=== PATIENT | male | born 1990 | race Two or more races ===

== ENCOUNTER 2023-02-14 14:00 | Emergency (ER) | payer OTHER, SELFPAY ==
[2023-02-14 14:10] VITALS: BP 119/84; PULSE 74; RESP 18; TEMP 36.7; O2SAT 97; BMI 26.4
--- NOTE | 2023-02-14 14:40 | XR_ITS ---
The [address] [address] Patient Name: EDGAR LADD MRN: [id number] date: 1990 Sex: M Assigned Patient Location: ER Current Patient Location: ER Accession/Order Number: [id number] Exam Date: 02/14/2023 14:35 Report Date: 02/14/2023 14:53 At the request of: FAUSTO CARVALHO Procedure: XR wrist RT min 3V PROCEDURE: XR wrist RT min 3V HISTORY: dog bite COMPARISON: None. FINDINGS: BONES:No fracture, acute abnormality, or significant arthropathy. SOFT TISSUES:Prominent soft tissue swelling and large amount of subcutaneous air anterior and posterior to the wrist. No radiopaque foreign body. EFFUSION:None visible. OTHER: Negative. XR/XR wrist RT min 3V IMPRESSION: 1. Soft tissue swelling surrounding the wrist with large amount of subcutaneous air, and several visible puncture wounds. No radiopaque foreign body. 2. No bone involvement. Electronically authenticated by: HARSHAL SALCIDO Date: 02/14/2023 14:53
[2023-02-14] MEDS: BACITRACIN 0.9 GM PACKET 1 PACKET TOPICAL (14:43)
[2023-02-14] MEDS: ADACEL DIPH,PERTUSS(ACELL),TET VAC/PF 0.5 ML ADULT SYRINGE IM (14:43)
--- NOTE | 2023-02-14 15:16 | ED.ANIMALBI1 ---
HPI - Animal Bite General Chief Complaint: Animal Bite Stated Complaint: BIT BY DOG ON R ARM Time Seen by Provider: 02/14/23 14:20 Source: patient Mode of arrival: walk-in Limitations: no limitations History of Present Illness HPI narrative: patient is a 32-year-old male who presents to the emergency department for the evaluation of a dog bite to the right wrist. Patient states approximately 3-4 hours ago he was bit by a neighborhood dog that he tried to pet. Vaccination status of the dog is unknown. Unknown last tetanus for the patient. He has had swelling, puncture wounds to the right wrist. He is right-hand dominant. No medications taken prior to arrival. No other associated injuries. Related Data Previous Rx's Medication Instructions Recorded amoxicillin 875 mg-potassium 1 tab PO Q12H #20 tabs 02/14/23 clavulanate 125 mg tablet hydrocodone 5 mg-acetaminophen 325 1 tab PO Q6H PRN pain #12 tabs 02/14/23 mg tablet naproxen sodium 550 mg tablet 550 mg PO BID PRN pain #10 tabs 02/14/23 Allergies Allergy/AdvReac Type Severity Reaction Status Date / Time No Known Drug Allergies Allergy Verified 02/14/23 14:15 Review of Systems ROS Constitutional Denies: fever or chills Ears, nose, mouth, and throat Denies: throat pain Respiratory Denies: shortness of breath Gastrointestinal Denies: nausea or vomiting Musculoskeletal Reports: extremity pain; Denies: back pain or neck pain Integumentary/Breast Denies: rash Hematologic/Lymphatic Denies: easy bruising Exam Narrative Exam Narrative: Gen.: Awake, alert, in no distress Head: Normocephalic, atraumatic ENT: Moist mucous membranes Respiratory: No respiratory distress Extremities: limited flexion and extension at the right wrist due to swelling and pain. 1.5 cm jagged puncture wound/laceration noted to the volar right wrist with minimal subcutaneous tissue exposure, the laceration is gapped approximately 2 mm. There is no tendon, muscle or bony visualization under the laceration. 2+ right radial pulse. Three small puncture wounds noted to the dorsum of the right wrist with no large gap or subcutaneous tissue exposure. Normal flexion and extension of the fingers of the right hand with normal sensation to the fingertips Psych: Normal mood and affect Neuro: No focal neuro deficit Skin: Warm, dry Constitutional Vital Signs, click to edit/add: Last Vital Signs Temp 98.1 F 02/14/23 14:10 Pulse 74 02/14/23 14:10 Resp 18 02/14/23 15:34 BP 143/90 H 02/14/23 15:34 Pulse Ox 99 02/14/23 15:34 O2 Del Method Room Air 02/14/23 15:34 Course Vital Signs Vital signs: Vital Signs Temperature 98.1 F 02/14/23 14:10 Pulse Rate 74 02/14/23 14:10 Respiratory Rate 18 02/14/23 14:10 Blood Pressure 119/84 02/14/23 14:10 Pulse Oximetry 97 02/14/23 14:10 Oxygen Delivery Method Room Air 02/14/23 14:10 Temperature 98.1 F 02/14/23 14:10 Pulse Rate 74 02/14/23 14:10 Respiratory Rate 18 02/14/23 15:34 Blood Pressure 143/90 H 02/14/23 15:34 Pulse Oximetry 99 02/14/23 15:34 Oxygen Delivery Method Room Air 02/14/23 15:34 MDM - Animal Bite MDM Narrative Medical decision making narrative: x-ray show no evidence of acute bony process, this is reviewed by the radiologist. Tetanus is updated, patient was treated with pain medication in the Emergency Room. Laceration to the volar wrist was approximated with sutures. Please see procedure note for details. Patient started on Augmentin, pain medication, NSAIDs. Topical antibiotic ointment, RICE therapy encouraged for home. Return to the Emergency Room if symptoms change or worsen. Sutures removed in 8-10 days with PCP or urgent care. Laceration repair: Done under sterile conditions. The use of Shur-Clens prep the area. Local injection with lidocaine 1% was used, approximately 5 cc. The wound was irrigated copiously with normal saline. The wound was explored there was no evidence of foreign material. The laceration was approximated with 3-0 nylon. 2 simple interrupted sutures were placed. Patient tolerated the procedure well. The patient was neurovascularly intact post. the patient had bacitracin applied to the laceration and a dry sterile dressing was placed with Ajay wrap. The patient will need to follow-up in the next 8-10 days for removal I, Dr Belle, have reviewed the above progress note and course of action in the ER; agree with the above. I have personally seen and evaluated this patient, gone over history and physical, and discussed disposition and treatment plan with the patient. Tetanus was updated, the risk and benefits of performing rabies immunizations and injections were discussed as well. It is currently uncertain who his dog this was. Education was done with patient on what is Needed and medication given with rabies immunoglobin, Vaccination injections, and return visits that are needed for continued rabies vaccinations. Patient currently is decllining, understands that he can change his mind in the next few days and have rabies vaccinations if needed. Shared decision-making was done with the patient, Azul WORKMAN, and myself dr BELLE. Patient was thankful on recommendations and education on potential rabies infection. Patient was told in the setting of caution and go through the series of shots for rabies, patient is currently declining at this time. Medical Records Attestation: I reviewed the patient's medical records. Imaging Data XR wrist: Attestation: I have reviewed the pertinent imaging results. Radiologist's impression: Procedure: XR wrist RT min 3V PROCEDURE: XR wrist RT min 3V HISTORY: dog bite COMPARISON: None. FINDINGS: BONES:No fracture, acute abnormality, or significant arthropathy. SOFT TISSUES:Prominent soft tissue swelling and large amount of subcutaneous air anterior and posterior to the wrist. No radiopaque foreign body. EFFUSION:None visible. OTHER: Negative. IMPRESSION: 1. Soft tissue swelling surrounding the wrist with large amount of subcutaneous air, and several visible puncture wounds. No radiopaque foreign body. 2. No bone involvement. Electronically authenticated by: HARSHAL SALCIDO Date: 02/14/2023 14:53 Discharge Plan Discharge Chief Complaint: Animal Bite Clinical Impression: Puncture wound, Dog bite, Acute pain of right wrist Patient Disposition: Home, Self-Care Time of Disposition Decision: 15:17 Condition: Good Prescriptions / Home Meds: New hydrocodone-acetaminophen 5-325 mg tablet 1 tab PO Q6H PRN (Reason: pain) Qty: 12 0RF Rx Instructions: DX: M25.531 amoxicillin-pot clavulanate 875-125 mg tablet 1 tab PO Q12H Qty: 20 0RF naproxen sodium 550 mg tablet 550 mg PO BID PRN (Reason: pain) Qty: 10 0RF Instructions: Animal Bite (ED), Care For Your Stitches (ED), Wrist Injury (ED), Puncture Wound (ED) Additional Instructions: Sutures removed in 8-10 days with primary care or urgent care. Stand Alone Forms: Portal Instructions Referrals: Physician,Non-Staff, MD [Primary Care Provider] - 1 week Discharge Date/Time: 02/14/23 15:38
[2023-02-14 15:34] VITALS: BP 143/90; RESP 18; O2SAT 99
== END 2023-02-14 15:38 | disposition home or self-care (01) ==
PROVIDERS: Emergency Provider Emergency Medicine
DX: S61.551A Open bite of right wrist, initial encounter (principal); W54.0XXA Bitten by dog, initial encounter; M25.531 Pain in right wrist; Z23 Encounter for immunization
CPT/HCPCS: 12001; 73110; 90471; 90715; 99284

== ENCOUNTER 2025-02-21 18:27 | Emergency (ER) | payer OTHER, SELFPAY ==
--- OUTSIDE RECORDS SUMMARY | 2017-07-12 07:33 | XMS_ITS | Continuity of Care Document ---
Author Organization [facility] ([place], [place]) Address [address] [place] [address] Phone Care Team Providers Care Picture Booker Name Role Phone Howard Roa Unavailable Unavailable Allergies, Adverse Reactions, Alerts Substance Reaction Status Criticality No Known allergies Procedures Procedure Date PREV VISIT, NEW, AGE 18-39 [facility] SPECIMEN HANDLING (GC/CHLAMYDIA) Dec HIV-1 Condoms Advance Directives Directive Yes / No Effective Date File Name No Information Encounters Encounter Description Practice Location Reason(s) For Visit Diagnoses Date Provider Providers Copied on Encounter [facility] ([place], [place]), [address], [place], [id number], tel:[phone] [facility] ([place] [place]) No Information Betty Wong. [address], [place], [id number], [place]. tel:[phone] PREV VISIT, NEW, AGE 18-39 [facility] ([place], [place]), [address], [place], [id number], tel:[phone] [facility] ([place], [place]) STI male (chief complaint) Screening examination for venereal disease Gauri Timmons. [address], [place], [id number], [place]. tel:[phone] Family History Family Member Type Diagnosis Age At Onset No Information Payers Payer name Insurance type Covered libertarian ID Authoriza tion(s) No Information Social History [...]
[2025-02-21 18:33] VITALS: BP 126/95; PULSE 92; TEMP 37.3; O2SAT 98; BMI 26.4
--- OUTSIDE RECORDS SUMMARY | 2025-02-21 18:34 | XMS_ITS | Patient Health Record ---
Author Organization [facility] Address [address], [place] [id number] Support Name Relationship Address Phone Khurram Hawk Guarantor Unknown [phone] Reason For Referral No Information Plan Of Treatment No Information Insurance Providers Payer Name Payer Address Payer Phone Subscriber Number Group Number Insured Name Patient Relationship to Insured Coverage Start Date Coverage End Date [facility] [address] [place], [place] [id number] Khurram Hawk Self - patient is the insured
--- NOTE | 2025-02-21 18:50 | ED_ITS ---
HPI HPI - General Adult General Chief complaint: Animal Bite Stated complaint: DOG BITE Time Seen by Provider: 02/21/25 18:39 Source: patient Mode of arrival: walk-in Limitations: no limitations History of Present Illness HPI narrative: Patient states was bitten on hands by unknown dog . Patient was helping clean up his friend's yard. States dog with collar ran in yard. Followed by other people after his hands were bitten by dog and other people left. Patient has unknown last tetanus imm. pt has hand pain. About rabies inquires about rabies vaccines. We discussed hand pain antibiotics update immunizations. Patient denies any additional injuries. He denies any blood thinner use. 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) Location: Reports upper extremity (Hand/ bilateral) Radiation: Reports non-radiation Severity: moderate Relieving factors: Reports none Exacerbating factors: Reports movement Treatments prior to arrival: Reports none Related Data Previous Rx's ?Medication ?Instructions ?Recorded amoxicillin 875 mg-potassium 1 tab PO Q12H #20 tabs clavulanate 125 mg tablet Allergies Allergy/AdvReac Type Severity Reaction Status Date / Time No Known Drug Allergies Allergy Verified 02/21/25 18:36 Opioid HPI Opioid Management Most Recent Opioid Data: Last Pain Scale 10 Today, 18:33 Review of Systems ROS Status of ROS 10 or more systems reviewed and unremark able except as noted in history and below Constitutional Denies: fever or chills Cardiovascular Denies: chest pain Respiratory Denies: cough Gastrointestinal Denies: abdominal pain Musculoskeletal Reports: extremity pain and extremity swelling; Denies: back pain or muscle weakness Integumentary/Breast Reports: other (Lacerations and puncture wounds to hands) Neurological Denies: headache Psychiatric Denies: anxiety Hematologic/Lymphatic Denies: easy bruising Exam Constitutional Vital Signs, click to edit/add: Last Vital Signs Temp 99.1 F 02/21/25 18:33 Pulse 92 H 02/21/25 18:33 Resp 20 02/21/25 18:33 BP 126/95 H 02/21/25 18:33 Pulse Ox 98 02/21/25 18:33 O2 Del Method Room Air 02/21/25 18:33 Documenting provider has reviewed patient's vital signs: yes Common normals: no apparent distress and oriented x3 HENMT Common normals: normocephalic Head and scalp: normal to inspection Face and sinus: normal facial exam Eye Common normals: PERRL and EOMs intact bilaterally Neck & C-Spine Common normals: full ROM and supple Respiratory Common normals: normal respiratory effort and clear to auscultation bilaterally Effort & inspection: able to speak in complete sentences Cardio Common normals: regular rate, regular rhythm, S1 normal heart sound and S2 normal heart sound GI Common normals: Normal to inspection, nondistended, normoactive bowel sounds present, soft to palpation and non-tender Extremity Common normals: limited ROM Right upper extremity: hand and digits (multiple punctures/edema/tender) Left upper extremity: wrist and hand and digits (laceration. multiple punctures / + tender and edema) Neuro Common normals: no focal motor deficits and no sensory deficits noted Psych Common normals: mental status grossly normal, thought process normal and cooperative Appearance: grossly normal and well kempt Course Vital Signs Vital signs: Vital Signs Temperature 99.1 F 02/21/25 18:33 Pulse Rate 92 H 02/21/25 18:33 Respiratory Rate 20 02/21/25 18:33 Blood Pressure 126/95 H 02/21/25 18:33 Pulse Oximetry 98 02/21/25 18:33 Oxygen Delivery Method Room Air 02/21/25 18:33 Temperature 99.1 F 02/21/25 18:33 Pulse Rate 92 H 02/21/25 18:33 Respiratory Rate 20 02/21/25 18:33 Blood Pressure 126/95 H 02/21/25 18:33 Pulse Oximetry 98 02/21/25 18:33 Oxygen Delivery Method Room Air 02/21/25 18:33 Medical Decision Making [facility] Narrative Medical decision making narrative: Discussed plan of care with patient including antibiotics x-rays of both hands. Will add Augmentin 875 mg DTaP patient inquires as to rabies vaccine we discussed rabies vaccine patient still requests rabies vaccine as well as immunoglobulin at this time will order both. Laceration to left hand with loose closure. Consent again discussed with patient regarding rabies immunoglobulin vaccine patient persists in request for vaccine and immunoglobulin. We again discussed risks and benefits. PML RIG instilled in the lacerations approaches bilateral hands. Patient tolerated procedure. Will refer to primary care re ferral sheet given refer to orthopedics suture removal in 7 days. Augmentin 875 twice daily x 10 days to local pharmacy patient to reapply dry sterile dressing twice daily. Patient return to ER if any symptoms worsen or new symptoms develop. Patient ordered rabies vaccine 1 mL IM on days 3 7 and 14. He advises they will call patient from central scheduling to schedule these repeat vaccines patient agreeable plan of care. See Patient procedure note. Differential Diagnosis Differential Diagnosis: , Laceration, puncture wound dog bites Discharge Plan Discharge Chief Complaint: Animal Bite Clinical Impression: Puncture wound, Laceration Dog bite Qualifiers: Encounter type: initial encounter Qualified Code(s): W54.0XXA - Bitten by dog, initial encounter Patient Disposition: Home, Self-Care Time of Disposition Decision: 21:03 Mode of Transportation: Private Vehicle Prescriptions / Home Meds: New amoxicillin-pot clavulanate 875-125 mg tablet 1 tab PO Q12H Qty: 20 0RF Print Language: Czech Instructions: Animal Bite (ED), Rabies (ED) Additional Instructions: Wash wounds with gentle soap and water reapply nonstick dressings twice daily. Suture removal in 7 days. Follow-up with primary care and orthopedics. Return for additional rabies vaccines they will contact you tomorrow to schedule these. Referrals: ANN MARTINEZ [Physician, Orthopedics] - As soon as possible Physician,Non-Staff, [Primary Care Provider] - As soon as possible Referral Note: See referral sheet provided Procedures ED Laceration Laceration Laceration 1: Site: hand Side (if applicable): right Size (cm): 4 Description: linear Depth: simple, single layer Anesthetic used: lidocaine 1% Anesthesia technique: local infiltration Amount (ml): 6 Pre-repair: wound explored, irrigated extensively and deep structures intact Skin layer closed with: other (Prolene) Size (cm): 3-0 Number of sutures: 3 Technique: simple, interrupted Additional comments: Patient closed suture with 2 to 3 mm gap secondary to dog bite. 3 sutures placed sterile technique utilized patient was reprepped with Betadine prior to procedure after being cleaned with chlorhexidine and copious amounts of fluid. Patient tolerated procedure.
[2025-02-21] MEDS: RABIES VACCINE/PF 1 ML VIAL IM (20:46)
[2025-02-21] MEDS: DIPHTH,PERTUSS(ACELL),TET VAC 0.5 ML SYRINGE IM (20:47)
[2025-02-21] MEDS: AMOXICILLIN/POT CLAV 875-125 MG TABLET 1 TAB PO (20:49)
[2025-02-21] MEDS: LIDOCAINE HCL 1% 100 MG/10 ML MDV INJ (20:49)
[2025-02-21] MEDS: RABIES IMMUNE GLOBULIN/PF 300 UNIT/2 ML VIAL 1397.06 UNIT INJ (20:50)
== END 2025-02-21 21:50 | disposition home or self-care (01) ==
PROVIDERS: Emergency Provider Student in an Organized Health Care Education/Training Program
DX: S61.451A Open bite of right hand, initial encounter (principal); S61.452A Open bite of left hand, initial encounter; W54.0XXA Bitten by dog, initial encounter; Z23 Encounter for immunization
CPT/HCPCS: 73130; 90377; 90471; 90472; 90675; 99284

== ENCOUNTER 2025-03-05 07:57 | Emergency (ER) | payer SELFPAY ==
--- OUTSIDE RECORDS SUMMARY | 2017-07-12 07:33 | XMS_ITS | Continuity of Care Document ---
Author Organization [facility] Address [address] [place] [address] Phone Care Team Providers Care Bacon Slicer Name Role Phone Howard Roa Unavailable Unavailable Allergies, Adverse Reactions, Alerts Substance Reaction Status Criticality No Known allergies Procedures Procedure Date PREV VISIT, NEW, AGE 18-39 [facility] SPECIMEN HANDLING (GC/CHLAMYDIA) Dec HIV-1 Condoms Advance Directives Directive Yes / No Effective Date File Name No Information Encounters Encounter Description Practice Location Reason(s) For Visit Diagnoses Date Provider Providers Copied on Encounter [facility], [address], [place], [id number], tel:[phone] [facility] No Information Betty Wong. [address], [place], [id number], [place]. tel:[phone] PREV VISIT, NEW, AGE 18-39 [facility], [address], [place], [id number], tel:[phone] [facility] STI male (chief complaint) Screening examination for venereal disease Gauri Timmons. [address], [place], [id number], [place]. tel:[phone] Family History Family Member Type Diagnosis Age At Onset No Information Payers Payer name Insurance type Covered constitution party ID Authoriza tion(s) No Information Social History Type Description Quantity Date Captured Comments Sex Male Smoking Status No Information Sexual Orientation Straight or heterosexual Chief Complaint And Reason For Visit No Information Reason For Referral Reason For Referral No Information Plan Of Treatment Date Type Action Status Goal Tobacco cessation counseling completed History Of Present Illness Encounter Date Complaint History Of Prese nt Illness No Information Functional Status Date Functional Assessmen t No Information Instructions Date Instruction Additional Camir michael Avoid sexual activit y while you await your test results. Related to Screening examination for venereal disease No treatment indicat ed today. Call for test results. Related to Screening examination for venereal disease Assessments Type Assessment Date No Information Patient Care Teams Name Effective Dates (start - stop) Status Members No Information
[2025-03-05 08:01] VITALS: BP 126/93; PULSE 85; TEMP 36.6; O2SAT 97; BMI 26.4
--- OUTSIDE RECORDS SUMMARY | 2025-03-05 08:08 | XMS_ITS | Patient Health Record ---
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 Name Role Phone valentineFidelia Esvin Primary Care Provider [phone] Reason For Referral No Information Medications Medication SIG (Take, Route, Fr equency, Duration) Notes Start Date End Date Status Omeprazole 40 MG 1 capsule Orally Onc e a day; Duration: 30 day(s) 12/19/2016 Active Problems Problem Type SNOMED Code ICD Code Onset Dates Problem Status W/U Status Risk Notes Problem Residual foreign body in soft tissue (0673250) Residual foreign body in soft tissue (729.6) Active confirmed Problem Constipation (K59.00) Active confirmed Plan Of Treatment No Information Insurance Providers Payer Name Payer Address Payer Phone Subscriber Number Group Number Insured Name Patient Relationship to Insured Coverage Start Date Coverage End Date [employer] PA[employer] EDGAR LADD Self - patient is the insured Medical (General) History Surgical History Surgery Date(Month/Year) Abdominal surgery 2015 Hospitalization History Reason Date(Month/Year) Abdominal surgery 2015
--- OUTSIDE RECORDS SUMMARY | 2025-03-05 08:09 | XMS_ITS | Patient Health Record ---
Author Organization [facility] Address [address], [place] [id number] Support Name Relationship Address Phone Khurram Hawk Guarantor Unknown [phone] Reason For Referral No Information Plan Of Treatment No Information Insurance Providers Payer Name Payer Address Payer Phone Subscriber Number Group Number Insured Name Patient Relationship to Insured Coverage Start Date Coverage End Date [facility] [address] [place], [place] [id number] Khurram Hawk Self - patient is the insured
--- NOTE | 2025-03-05 08:21 | ED_ITS ---
HPI HPI - General Adult General Chief complaint: Recheck/Abnormal Lab/Rx Stated complaint: STICHES REMOVAL Time Seen by Provider: 03/05/25 08:04 Source: patient Mode of arrival: walk-in Limitations: no limitations History of Present Illness HPI narrative: 34 year old male who is coming today for suture removal, he sustained this laceration after dog bite almost to 12 days ago No other complaints Related Data Home Medications ?Medication ?Instructions ?Recorded ?Confirmed No Known Home Medications 03/05/25 08/2 08/09 Allergies Allergy/AdvReac Type Severity Reaction Status Date / Time No Known Drug Allergies Allergy Verified 03/05/25 08:07 Opioid HPI Opioid Management Most Recent Opioid Data: Last Pain Scale 6 Today, 08:01 Review of Systems ROS Status of ROS 10 or more systems reviewed and unremark able except as noted in history and below [facility] Social History (Updated 03/05/25 @ 08:10 by Edwina Williamson RN) Within the past year, how often did you have a drink containing alcohol: never Score interpretation: A score less than 4 is consistent with normal alcohol consumption. Smoking status: Never smoker Non-prescribed substance use: denies use Little interest or pleasure in doing things: not at all Feeling down, depressed, or hopeless: not at all Exam Narrative Exam Narrative: Nurses notes and vital signs reviewed and patient is not hypoxic. General: Well-appearing and in no apparent distress. Skin: Warm, dry, no pallor noted. Right upper extremity the patient had multiple lacerations that are healing there is only 3 stitches on the dorsum of the right hand that are clean and healing well Constitutional Vital Signs, click to edit/add: Last Vital Signs Temp 97.8 F 03/05/25 08:01 Pulse 85 03/05/25 08:01 Resp 15 03/05/25 08:01 BP 126/93 H 03/05/25 08:01 Pulse Ox 97 03/05/25 08:01 O2 Del Method Room Air 03/05/25 08:01 Course Vital Signs Vital signs: Vital Signs Temperature 97.8 F 03/05/25 08:01 Pulse Rate 85 03/05/25 08:01 Respiratory Rate 15 03/05/25 08:01 Blood Pressure 126/93 H 03/05/25 08:01 Pulse Oximetry 97 03/05/25 08:01 Oxygen Delivery Method Room Air 03/05/25 08:01 Temperature 97.8 F 03/05/25 08:01 Pulse Rate 85 03/05/25 08:01 Respiratory Rate 15 03/05/25 08:01 Blood Pressure 126/93 H 03/05/25 08:01 Pulse Oximetry 97 03/05/25 08:01 Oxygen Delivery Method Room Air 03/05/25 08:01 Medical Decision Making MDM Narrative Medical decision making narrative: The patient presentation is just for suture removal and the right now 3 stitches were removed and the patient wounds are healing well He did mention that he did not continue taking his rabies injection but the patient at that time was a low risk for rabies and at this moment the patient just follow-up with his primary care The patient is to follow up with primary care physician in next 2-3 days or to return to the emergency department should any of the signs or symptoms worsen or new symptoms develop. The patient agrees with the following Diagnosis and Treatment plan and the patient will be discharged home. Discharge Plan Discharge Chief Complaint: Recheck/Abnormal Lab/Rx Clinical Impression: Visit for suture removal Patient Disposition: Home, Self-Care Time of Disposition Decision: 08:16 Condition: Good Prescriptions / Home Meds: No Action No Known Home Medications Print Language: [place] Islander Instructions: Stitches Removal (ED) Referrals: Physician,Non-Staff, MD [Primary Care Provider] - 1 week
[2025-03-05 08:22] VITALS: BP 145/98; PULSE 77; O2SAT 96
== END 2025-03-05 08:24 | disposition home or self-care (01) ==
PROVIDERS: Emergency Provider Emergency Medicine
DX: S61.411D Laceration without foreign body of right hand, subsequent encounter (principal); W54.0XXD Bitten by dog, subsequent encounter
CPT/HCPCS: 99281

== ENCOUNTER 2025-06-24 20:55 | Emergency (ER) | payer SELFPAY ==
[2025-06-24] VITALS (26 sets, daily range): BP systolic 106–151; BP diastolic 72–107; PULSE 69–115; TEMP 36.8; O2SAT 95–99
--- NOTE | 2025-06-24 21:16 | CT_ITS ---
The [place] [id number] Patient Name: EDGAR LADD MRN: [id number] date: 1990 Sex: M Assigned Patient Location: ED.MAIN Current Patient Location: ED.MAIN Accession/Order Number: [id number] Exam Date: 06/24/2025 21:30 Report Date: 06/24/2025 22:36 At the request of: ANISH ALVAREZ DO Procedure: CT forearm RT w con CT RIGHT FOREARM WITH CONTRAST: CLINICAL HISTORY: multiple dog bite, concern for tendon/nerve injury COMPARISON: None TECHNIQUE: This CT exam was performed using one or more following dose reduction techniques: Automated exposure control, adjustment of the mA and/or kV according to patient size, or use of iterative reconstruction technique. FINDINGS: Evaluation degraded due to quantum mottle related patient positioning. Portions of the soft tissues and the osseous structures are excluded from [id number]. Evidence of subcutaneous gas. No fracture-dislocation. No definite radiopaque foreign body within the wklsx-ss-frnt. CT/CT forearm RT w con IMPRESSION: Soft tissue injury. No radiopaque foreign body or fracture identified. Correlate with clinical exam findings. Impression dictated by: Wilberto Ybarra M.D. 06/24/2025 10:36 PM Dictation Location: [place] [address] Electronically authenticated by: [id number] Y Date: 06/24/2025 22:36
--- NOTE | 2025-06-24 21:18 | CT_ITS ---
The [address] [address] Patient Name: EDGAR LADD MRN: [id number] date: 1990 Sex: M Assigned Patient Location: ED.MAIN Current Patient Location: ED.MAIN Accession/Order Number: [id number] Exam Date: 06/24/2025 21:30 Report Date: 06/24/2025 22:29 At the request of: ANISH ALVAREZ DO Procedure: CT head/brain wo con CT BRAIN WITHOUT CONTRAST: CLINICAL HISTORY: injury COMPARISON: None TECHNIQUE: Contiguous axial unenhanced images were obtained through the brain. This CT exam was performed using one or more following dose reduction techniques: Automated exposure control, adjustment of the mA and/or kV according to patient size, or use of iterative reconstruction technique. FINDINGS: There is no evidence of midline shift, intra or extra-axial fluid collection, hemorrhage or CT evidence of of acute large vascular distribution stroke. Visualized intraorbital contents appear unremarkable. Visualized paranasal sinuses are clear. The surrounding soft tissues are normal. CT/CT head/brain wo con IMPRESSION: NO ACUTE INTRACRANIAL ABNORMALITY. Impression dictated by: Wilberto Ybarra M.D. 06/24/2025 10:29 PM Dictation Location: [place] [address] Electronically authenticated by: [id number] Y Date: 06/24/2025 22:29
[2025-06-24] MEDS: HYDROMORPHONE HCL 0.5 MG/0.5 ML SYRINGE IV (21:19)
[2025-06-24] MEDS: 0.9 % SODIUM CHLORIDE 1,000 ML 1000 ML IV ×2 (21:19→22:06)
[2025-06-24] MEDS: MIDAZOLAM HCL 2 MG/2 ML VIAL IV (21:19)
[2025-06-24 21:22] LABS: Hematocrit 42.9 % (42.0-54.0); Hemoglobin 14.2 g/dL (14.0-18.0); Immature Granulocytes Abs Auto 0.03 10^3/uL (0.00-0.03); Immature Granulocytes Pct Auto 0.3 % (0.0-0.5); Lymphocytes Absolute Auto 2.3 10^3/uL (1.2-3.8); Mean Corpuscular HGB Conc 33.1 g/dL (29.9-35.2); Mean Corpuscular Hemoglobin 29.8 pg (25.9-34.0); Mean Corpuscular Volume 90.1 fL (80.0-94.0); Platelet Count 338 10^3/uL (150-450); Red Blood Count 4.76 10^6/uL (4.70-6.10); White Blood Count 10.5 10^3/uL (4.0-11.0)
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
[2025-06-24 21:33] LABS: Alanine Aminotransferase 18 U/L (16-63); Albumin Globulin Ratio 1.1; Albumin Level 3.9 g/dL (3.4-5.0); Alkaline Phosphatase 107 U/L (46-116); Anion Gap 26.7; Aspartate Amino Transferase 23 U/L (15-37); Blood Urea Nitrogen 17.0 mg/dL (7.0-18.0); Calcium 9.0 mg/dL (8.5-10.1); Carbon Dioxide 14.6 mmol/L (21.0-32.0); Chloride 100 mmol/L (98-107); Estimated GFR (African America >60 (>=60 mL/min/1.73m^2); Estimated GFR (Non-African Ame 50 (>=60 mL/min/1.73m^2); Globulin 3.5 g/dL; Glucose 77 mg/dL (74-106); INR 0.99; Partial Thromboplastin Time 26.7 sec (22.3-36.2); Potassium 3.3 mmol/L (3.5-5.1); Prothrombin Time 10.4 sec (9.0-11.6); Salicylate <2.8 mg/dL (<=19.9); Sodium 138 mmol/L (136-145); Total Protein 7.4 g/dL (6.4-8.2)
[2025-06-24] MEDS: HALOPERIDOL LACTATE 5 MG/ML VIAL 2.5 MG IV (21:34)
[2025-06-24] MEDS: DIPHENHYDRAMINE HCL 50 MG/ML VIAL IVP (21:34)
[2025-06-24 21:36] LABS: Acetaminophen <2.0 ug/mL (10.0-30.0)
[2025-06-24] MEDS: AMPICILLIN SODIUM/SULBACTAM NA 3 GM in 0.9 % SODIUM CHLORIDE 100 ML IV (22:05)
[2025-06-24] MEDS: LIDOCAINE HCL 1%-EPINEPHRINE 1:100,000 20 ML MDV 10 ML INJ (22:59)
[2025-06-24] MEDS: LORAZEPAM 2 MG/ML VIAL IV (22:59)
--- NOTE | 2025-06-24 23:15 | ECG_ITS ---
The 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 Repeat ECG is requested 9110 normal ECG No previous ECG available for comparison Electronically Signed On 06-25-2025 15:52:24 EST by TY HERRON
--- NOTE | 2025-06-24 23:20 | PC.NURSE ---
Pt dropped off at front of registration, began registering then sat on the floor and then laid on the floor. pt has multiple laceration and puncture wounds to right forearm. pt able to answer few questions, states it was a dog bite and that he got too loud and the dog attacked him. refuses to say who the dog belonged to or where it had come from.
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
[2025-06-24 23:48] LABS: Cannabinoid Screen Urine POSITIVE (NEGATIVE); Methamphetamines Screen Urine POSITIVE (NEGATIVE); Tricyclic Antidepressant Urine NEGATIVE (NEGATIVE)
[2025-06-25] VITALS (23 sets, daily range): BP systolic 117–137; BP diastolic 70–98; PULSE 67–80; O2SAT 96–99
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
--- NOTE | 2025-06-25 09:45 | ED.GENADUL1 ---
HPI HPI - General Adult General Chief complaint: Animal Bite Stated complaint: other Time Seen by Provider: 06/24/25 21:14 Source: patient Limitations: altered mental status Limitations comment: intoxicated History of Present Illness HPI narrative: 34-year-old male presented to the emergency department and was initially seen by Dr. Gaona. Please see his full history and physical exam. Related Data Previous Rx's ?Medication ?Instructions ?Recorded amoxicillin 875 mg-potassium 1 tab PO BID 10 days #20 tabs 06/25/25 clavulanate 125 mg tablet Allergies Allergy/AdvReac Type Severity Reaction Status Date / Time No Known Drug Allergies Allergy Verified 06/24/25 21:18 Opioid HPI Opioid Management Most Recent Opioid Data: Last Pain Scale 6 03/05/25, 08:01 Ur Phencyclidine Scrn, (NEGATIVE) Negative 06/24/25, 23:10 PFSH PFS Social History (Updated 03/05/25 @ 08:10 by Edwina Williamson RN) Within the past year, how often did you have a drink containing alcohol: never Score interpretation: A score less than 4 is consistent with normal alcohol consumption. Smoking status: Never smoker Non-prescribed substance use: denies use Little interest or pleasure in doing things: not at all Feeling down, depressed, or hopeless: not at all Exam Constitutional Vital Signs, click to edit/add: Last Vital Signs Temp 98.2 F 06/24/25 21:14 Pulse 80 06/25/25 00:30 Resp 14 06/25/25 00:30 BP 128/77 06/25/25 03:48 Pulse Ox 97 06/25/25 03:48 O2 Del Method Room Air 06/25/25 01:30 O2 Flow Rate 2 06/24/25 21:30 Course Vital Signs Vital signs: Vital Signs Blood Pressure 106/74 06/24/25 20:54 Temperature 98.2 F 06/24/25 21:14 Pulse Rate 80 06/25/25 00:30 Respiratory Rate 14 06/25/25 00:30 Blood Pressure 128/77 06/25/25 03:48 Pulse Oximetry 97 06/25/25 03:48 Oxygen Delivery Method Room Air 06/25/25 01:30 Oxygen Delivery Flow Rate 2 06/24/25 21:30 Medical Decision Making [facility] Narrative Medical decision making narrative: The patient has been interviewed by mental health services and he will be admitted at [address] at [facility]. He is under pink slip filled out by Dr. Gaona. Sling applied to his arm, application checked by me and found to be appropriate, he is neurovascular intact. He was instructed to have follow-up with orthopedics regarding his wounds and sutures are to be removed in 7 to 10 days. He will require antibiotic. Augmentin prescription was sent to pharmacy by Dr. Gaona. Lab Data Lab results reviewed: Yes I reviewed the patient's lab results Labs: Lab Results 06/24/25 06/24/25 Range/Units 21:00 23:10 WBC 10.5 (4.0-11.0) 10^3/uL RBC 4.76 (4.70-6.10) 10^6/uL Hgb 14.2 (14.0-18.0) g/dL Hct 42.9 (42.0-54.0) % MCV 90.1 (80.0-94.0) fL MCH 29.8 (25.9-34.0) pg MCHC 33.1 (29.9-35.2) g/dL RDW 13.2 (11.0-15.0) % Plt Count 338 (150-450) 10^3/uL MPV 9.8 (9.5-13.5) fL Neut % (Auto) 69.5 (43.0-75.0) % Lymph % (Auto) 22.2 (20.5-60.0) % [place] % (Auto) 6.7 (1.7-12.0) % Eos % (Auto) 0.8 L (0.9-7.0) % Baso % (Auto) 0.5 (0.2-2.0) % Neut # (Auto) 7.3 H (1.4-6.5) 10^3/uL Lymph # (Auto) 2.3 (1.2-3.8) 10^3/uL [place] # (Auto) 0.7 (0.3-0.8) 10^3/uL Eos # (Auto) 0.1 (0.0-0.7) 10^3/uL Baso # (Auto) 0.1 (0.0-0.1) 10^3/uL Abs Immat Gran (auto) 0.03 (0.00-0.03) 10^3/uL Imm/Tot Granulo (auto) 0.3 (0.0-0.5) % PT 10.4 (9.0-11.6) sec INR 0.99 APTT 26.7 (22.3-36.2) sec Sodium 138 (136-145) mmol/L Potassium 3.3 L (3.5-5.1) mmol/L Chloride 100 (98-107) mmol/L Carbon Dioxide 14.6 L (21.0-32.0) mmol/L Anion Gap 26.7 BUN 17.0 (7.0-18.0) mg/dL Creatinine 1.61 H (0.70-1.30) mg/dL Est GFR ( Amer) >60 (>=60 mL/min/1.73m^2) Est GFR (Non-Af Amer) 50 L (>=60 mL/min/1.73m^2) BUN/Creatinine Ratio 10.6 Glucose 77 (74-106) mg/dL Calcium 9.0 (8.5-10.1) mg/dL Total Bilirubin 0.2 (0.2-1.0) mg/dL AST 23 (15-37) U/L ALT 18 (16-63) U/L Alkaline Phosphatase 107 (46-116) U/L Total Protein 7.4 (6.4-8.2) g/dL Albumin 3.9 (3.4-5.0) g/dL Globulin 3.5 g/dL Albumin/Globulin Ratio 1.1 Salicylates <2.8 (<=19.9) mg/dL Urine Opiates Screen Negative (NEGATIVE) Ur Buprenorphine Scrn Negative (NEGATIVE) Ur Oxycodone Screen Negative (NEGATIVE) Urine Methadone Screen Negative (NEGATIVE) Acetaminophen <2.0 L (10.0-30.0) ug/mL Ur Barbiturates Screen Negative (NEGATIVE) U Tricyclic Antidepress Negative (NEGATIVE) Ur Phencyclidine Scrn Negative (NEGATIVE) Ur Amphetamines Screen Positive A (NEGATIVE) U Methamphetamines Scrn Positive A (NEGATIVE) U Benzodiazepines Scrn Negative (NEGATIVE) Urine Cocaine Screen Negative (NEGATIVE) U Cannabinoids Screen Positive A (NEGATIVE) Ethanol Quant 83 mg/dL Imaging Data CT arm: Radiologist's impression: ITS Impressions Forearm CT 06/24/25 21:16 IMPRESSION: Soft tissue injury. No radiopaque foreign body or fracture identified. Correlate with clinical exam findings. Impression dictated by: Wilberto Ybarra M.D. 06/24/2025 10:36 PM Dictation Location: [facility] Electronically authenticated by: [id number] Y Date: 06/24/2025 22:[address] 06/24/25 21:18 IMPRESSION: NO ACUTE INTRACRANIAL ABNORMALITY. Impression dictated by: Wilberto Ybarra M.D. 06/24/2025 10:29 PM Dictation Location: [place] [address] Electronically authenticated by: [id number] Y Date: 06/24/2025 22:29 Discharge Plan Discharge Chief Complaint: Animal Bite Clinical Impression: Laceration, Alcohol intoxication, Suicidal ideation, Polysubstance abuse Dog bite Qualifiers: Encounter type: initial encounter Qualified Code(s): W54.0XXA - Bitten by dog, initial encounter Patient Disposition: [facility] Time of Disposition Decision: 09:44 Discharge Location: [facility] Discharge location: F/with orthopedics for arm wounds. Suture removal in 7 to 10 days Condition: Fair Mode of Transportation: EMS
--- NOTE | 2025-06-25 10:05 | PC.NURSE ---
1:[address] AT THIS TIME. SECURITY AT BEDSIDE. PT CALM AND COOPERATIVE. AWAITING ETA
[2025-06-25] MEDS: AMOXICILLIN/POT CLAV 875-125 MG TABLET 1 TAB PO (11:12)
[2025-06-25] MEDS: HALOPERIDOL LACTATE 5 MG/ML VIAL 2.5 MG IV (13:40)
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
== END 2025-06-25 14:30 ==
PROVIDERS: Student in an Organized Health Care Education/Training Program; Emergency Provider Emergency Medicine
DX: S51.811A Laceration without foreign body of right forearm, initial encounter (principal); F10.129 Alcohol abuse with intoxication, unspecified; F19.10 Other psychoactive substance abuse, uncomplicated; W54.0XXA Bitten by dog, initial encounter; R45.851 Suicidal ideations; Z91.51 Personal history of suicidal behavior; Y90.4 Blood alcohol level of 80-99 mg/100 ml
CPT/HCPCS: 12001; 36415; 70450; 73201; 80053; 80179; 80307; 80320; 80329; 85025; 85610; 85730; 93005; 96365; 96375; 96376; 99285; J0295; J1171; J1200; J1630; J2060; J2250; Q9967